=== PATIENT | male | born 1995 | race Two or more races ===

== ENCOUNTER 2020-05-30 14:02 | Emergency (ER) | payer OTHER ==
[2020-05-30 14:50] LABS: BASOPHIL 0.4 % (0-2); EOSINOPHIL 1.3 % (0-5); HCT 42.8 % (42.0-52.0); LYMPHOCYTE 20.1 % (15-48); MCH 34.6 pg (25.0-31.0); MCV 98.8 fL (78.0-100.0); MONOCYTE 9.4 % (0-12); MPV 11.5 fL (6.0-9.5); NEUTROPHIL 68.6 % (41-80); NRBC 0; PLT 233 K/uL (150-400); RBC 4.33 M/uL (4.70-6.00); RDW 12.2 % (11.5-14.0); WBC 4.7 K/uL (4.0-10.5)
[2020-05-30 15:08] LABS: ALBUMIN 4.2 g/dL (3.4-5.0); ALKALINE PHOSHATASE 61 U/L (46-116); ALT 19 U/L (16-63); AST 13 U/L (15-37); BUN 13 mg/dL (7-18); CHLORIDE 103 mmol/L (98-107); CO2 (BICARBONATE) 27 mmol/L (21-32); CREATININE 0.93 mg/dL (0.67-1.17); GLOBULIN (CALCULATION) 3.6 g/dL; GLUCOSE 132 mg/dL (74-106); POTASSIUM 3.8 mmol/L (3.5-5.1); TOTAL PROTEIN 7.8 g/dL (6.4-8.2)
[2020-05-30 15:09] LABS: ACETAMINOPHEN (TYLENOL) < 2.0 ug/mL (10.0-30.0)
[2020-05-30 15:26] LABS: BILIRUBIN NEGATIVE (NEGATIVE); BLOOD NEGATIVE Ery/uL (NEGATIVE); CLARITY CLEAR (CLEAR); COLOR YELLOW (YELLOW); GLUCOSE (U) NORMAL (NORMAL); LEUKOCYTES NEGATIVE Leu/uL (NEGATIVE); NITRITE NEGATIVE (NEGATIVE); PROTEIN NEGATIVE (NEGATIVE); SPECIFIC GRAVITY 1.025 (1.001-1.030); UROBILINOGEN 0.2 mg/dL (0.2-1.0); pH 6.5 (5.0-9.0)
[2020-05-30 15:31] LABS: AMPHETAMINES NEGATIVE (NEGATIVE); BARBITURATES NEGATIVE (NEGATIVE); ECSTASY (MDMA) NEGATIVE (NEGATIVE); MARIJUANA (THC) NEGATIVE (NEGATIVE); METHADONE NEGATIVE (NEGATIVE); OPIATES NEGATIVE (NEGATIVE); OXYCODONE NEGATIVE (NEGATIVE)
== END 2020-05-30 22:25 ==
LOC: FER 14:02
PROVIDERS: Internal Medicine
DX: F32.9 Major depressive disorder, single episode, unspecified (principal); Z91.5 Personal history of self-harm; Z88.8 Allergy status to other drugs, medicaments and biological substances; Z20.822 Contact with and (suspected) exposure to COVID-19
CPT/HCPCS: 36415; 80053; 80305; 81003; 85025; 99285; G0480; U0002